=== PATIENT | male | born 1970 | race Caucasian/White ===

== ENCOUNTER 2017-02-13 21:39 | Emergency (ER) | payer OTHER ==
[~2017-02-13] VITALS: Ht 182.9 cm; Wt 112.6 kg
[~2017-02-13 21:39] MED LIST: ALEVE220 M2 PO; AUGMENTIN875 MG PO; CIPRO500 MG PO; FLAGYL500 MG PO; HYDROCODON-ACE1 EAC7 PO; PERCOCET 5/31 TABLET PO; ULTRAM50 MG PO; ZOFRAN4 MG PO; ZOSYN 3.3753.375 GM IV; ZYRTEC10 M3 PO
[2017-02-13 23:04] LABS: HEMATOCRIT 45.8 % (38.0-50.0); HEMOGLOBIN 16.5 G/DL (12.5-16.6); MCH 33.5 PG (29.0-34.0); MCV 93.1 FL (86-99); PLATELET COUNT 262 K/uL (156-360); RBC DIS.WIDTH-SD 41.4 % (39-53); RED BLOOD COUNT 4.92 M/uL (4.00-5.50); WHITE BLOOD COUNT 13.8 K/uL (4.1-10.2)
[2017-02-13 23:12] LABS: ALBUMIN 4.5 g/dL (3.2-4.8)
[2017-02-13 23:13] LABS: CHLORIDE 103 mEq/L (99-109); POTASSIUM 3.9 mEq/L (3.7-5.4); SODIUM 138 mEq/L (136-147)
[2017-02-13 23:15] LABS: GLUCOSE 102 mg/dL (70-99); TOTAL PROTEIN 7.6 g/dL (6.4-8.3)
[2017-02-13 23:17] LABS: TOTAL BILIRUBIN 0.3 mg/dL (0.0-1.0)
[2017-02-13 23:18] LABS: ALKALINE PHOSPHATASE 86 IU/L (3-129)
[2017-02-13 23:19] LABS: CREATININE 1.1 mg/dL (0.6-1.3); GFR ESTIMATE (CALCULATED) > 59 mL/min/ (58.99-99999)
[2017-02-13 23:20] LABS: AST (GOT) 24 IU/L (2-34); UREA NITROGEN (BUN) 17 mg/dL (9-23)
[2017-02-13 23:21] LABS: ALT (GPT) 41 IU/L (3-49)
[2017-02-14] MEDS ORDERED: FLAGYL500 MG PO (00:38)
[2017-02-14] MEDS ORDERED: NORCO 5/3251 TABLET PO (00:38)
[2017-02-14] MEDS ORDERED: CIPRO500 MG PO (00:38)
[2017-02-14] MEDS ORDERED: ZOFRAN ODT4 MG PO (00:38)
[2017-02-14 00:56] VITALS: BP 116/77
[2017-02-14 00:57] LABS: APPEARANCE CLEAR ((CLEAR)); BILIRUBIN NEGATIVE; BLOOD NEGATIVE; COLOR YELLOW ((YELLOW)); GLUCOSE (STRIP) NEGATIVE; KETONES NEGATIVE; LEUKOCYTES NEGATIVE; NITRITE NEGATIVE; PROTEIN (STRIP) NEGATIVE; SPECIFIC GRAVITY 1.045 (1.000-1.030); UROBILINOGEN 0.2 MG/DL (0.2-1.0)
== END 2017-02-14 00:57 | disposition home or self-care (01) ==
LOC: EME 21:39
PROVIDERS: Nurse Practitioner Family
DX: K57.32 Diverticulitis of large intestine without perforation or abscess without bleeding (principal); R30.0 Dysuria; Z87.891 Personal history of nicotine dependence
CPT/HCPCS: 74177; 80053; 81003; 85027; 99281; 99285; J1885; J2270